=== PATIENT | female | born 1965 | race Caucasian/White ===

== ENCOUNTER 2016-06-10 15:58 | Observation (INO) | payer OTHER ==
[~2016-06-10] VITALS: Ht 162.6 cm; Wt 75.3 kg
[~2016-06-10 15:58] MED LIST: BACTRIM,SEPT1 TABLET PO
[2016-06-10 19:16] LABS: MCH 32.2 PG (29.0-34.0); MCHC 33.4 G/DL (30.0-36.0); MCV 96.2 FL (83-99); MEAN PLAT.VOLUME 10.3 uM^3 (9.5-12.4); PLATELET COUNT 277 K/uL (156-360); RBC DIS.WIDTH-CV 12.9 % (11.8-14.6); RBC DIS.WIDTH-SD 43.6 % (39-53); RED BLOOD COUNT 3.95 M/uL (3.80-5.20); WHITE BLOOD COUNT 8.7 K/uL (4.1-10.2)
[2016-06-10 19:26] LABS: CHLORIDE 103 mEq/L (99-109); POTASSIUM 4.5 mEq/L (3.7-5.4); SODIUM 138 mEq/L (136-147)
[2016-06-10] MEDS ORDERED: MS CONTIN,ORAMO15 M1 PO (19:27)
[2016-06-10] MEDS ORDERED: LORAZEPAM0.5 MG PO (19:27)
[2016-06-10] MEDS ORDERED: CITALOPRAM HBR40 MG PO (19:27)
[2016-06-10] MEDS ORDERED: MORPHINE SULFAT15 MG PO (19:27)
[2016-06-10] MEDS ORDERED: NORTRIPTYLINE H25 MG PO (19:27)
[2016-06-10] MEDS ORDERED: VITAMIN D-32000 UNI2 PO (19:28)
[2016-06-10] MEDS ORDERED: VITAMIN B-122500 MCG SL (19:28)
[2016-06-10] MEDS ORDERED: VENTOLIN HFA18 GM IH (19:28)
[2016-06-10] MEDS ORDERED: EPIPEN ADU0.3 MG/0.3 IM (19:28)
[2016-06-10 19:29] LABS: GLUCOSE 128 mg/dL (70-99)
[2016-06-10 19:30] LABS: ANION GAP 10 MEQ/L (2-14)
[2016-06-10 19:31] LABS: TOTAL BILIRUBIN 0.3 mg/dL (0.0-1.0)
[2016-06-10 19:32] LABS: ALKALINE PHOSPHATASE 91 IU/L (3-129)
[2016-06-10 19:33] LABS: GFR ESTIMATE (CALCULATED) > 59 mL/min/
[2016-06-10 19:34] LABS: DIRECT BILIRUBIN 0.1 mg/dL (0.0-0.3); UREA NITROGEN (BUN) 9 mg/dL (9-23)
[2016-06-10 19:36] LABS: LIPASE 21 U/L (1.0-51.0)
[2016-06-10 19:57] LABS: TROP-I INTERPRETATION NEGATIVE; TROPONIN-I < 0.01 ng/mL (0.0-0.30)
[2016-06-10 21:33] VITALS: BP 111/62
[2016-06-11 08:09] VITALS: BP 99/58
[2016-06-11 11:43] VITALS: BP 105/69
[2016-06-11 16:15] VITALS: BP 111/71
[2016-06-11 19:20] VITALS: BP 110/63
[2016-06-11 21:25] LABS: ADD MIUA? YES; BILIRUBIN NEGATIVE; BLOOD MODERATE; COLOR YELLOW ((YELLOW)); GLUCOSE (STRIP) NEGATIVE; KETONES NEGATIVE; LEUKOCYTES NEGATIVE; NITRITE NEGATIVE; PH, URINE 6.5 (5-8); PROTEIN (STRIP) NEGATIVE; SPECIFIC GRAVITY 1.022 (1.000-1.030); UROBILINOGEN 0.2 MG/DL (0.2-1.0)
[2016-06-11 21:27] LABS: BACTERIA 1+; CASTS NONE SEEN /LPF; CRYSTALS NONE SEEN; EPITHELIAL CELLS RARE; MUCUS NONE SEEN; PATHOLOGICAL CAST NONE SEEN; RED BLOOD CELLS 0-5 /HPF (0-5); SMALL ROUND CELL NONE SEEN; UCUL ADDED? NO; WHITE BLOOD CELLS 0-5 /HPF (0-5); YEAST-LIKE CELL NONE SEEN
[2016-06-12 00:10] VITALS: BP 116/56
[2016-06-12 04:33] VITALS: BP 97/60
[2016-06-12 08:00] VITALS: BP 127/83
[2016-06-12 12:00] VITALS: BP 118/76
[2016-06-12 16:00] VITALS: BP 106/66
[2016-06-12] MEDS ORDERED: NICOTINE PATCH1 EAC1 TD (16:19)
[2016-06-12] MEDS ORDERED: POLYETHYLENE GL17 GM PO (16:27)
[2016-06-12 21:33] VITALS: BP 106/68
[2016-06-13] VITALS: BP 130/70
[2016-06-13 04:20] VITALS: BP 104/60
[2016-06-13 08:52] VITALS: BP 110/74
[2016-06-13] MEDS ORDERED: MS CONTIN,ORAMO15 M1 PO (10:36)
[2016-06-13 12:44] VITALS: BP 96/64
[2016-06-23] MEDS ORDERED: CYCLOPHOSPHAMID50 M2 PO (09:02)
== END 2016-06-13 15:39 | disposition home or self-care (01) ==
LOC: EME 15:58 → EDOF 20:21 → 5WEST 21:14
PROVIDERS: Emergency Medicine; Hospitalist
DX: G89.3 Neoplasm related pain (acute) (chronic) (principal); C88.0 Waldenstrom macroglobulinemia; K59.03 Drug induced constipation; T40.2X5A Adverse effect of other opioids, initial encounter; R68.2 Dry mouth, unspecified; F17.200 Nicotine dependence, unspecified, uncomplicated; M79.7 Fibromyalgia; Z79.891 Long term (current) use of opiate analgesic; M19.90 Unspecified osteoarthritis, unspecified site; Z88.8 Allergy status to other drugs, medicaments and biological substances; Z80.1 Family history of malignant neoplasm of trachea, bronchus and lung
CPT/HCPCS: 72132; 72158; 80048; 80076; 81003; 83690; 84484; 85027; 85810 90; 94799; 99202; 99281; 99284; G0378; J1644; J2060; J2270; J2405; J7030

== ENCOUNTER 2016-06-27 12:14 | Observation (INO) | payer OTHER ==
[~2016-06-27] VITALS: Ht 165.1 cm; Wt 76.1 kg
[~2016-06-27 12:14] MED LIST changes: +CITALOPRAM HBR40 MG PO; +CYCLOPHOSPHAMID50 M2 PO; +EPIPEN ADU0.3 MG/0.3 IM; +LORAZEPAM0.5 MG PO; +MORPHINE SULFAT15 MG PO; +MS CONTIN,ORAMO15 M1 PO; +NICOTINE PATCH1 EAC1 TD; +NORTRIPTYLINE H25 MG PO; +POLYETHYLENE GL17 GM PO; +VENTOLIN HFA18 GM IH; +VITAMIN B-122500 MCG SL; +VITAMIN D-32000 UNI2 PO
[2016-06-27 13:08] LABS: HEMATOCRIT 39.3 % (36.0-46.0); MCH 31.5 PG (29.0-34.0); MCHC 33.8 G/DL (30.0-36.0); MCV 93.1 FL (83-99); PLATELET COUNT 280 K/uL (156-360); RBC DIS.WIDTH-CV 12.9 % (11.8-14.6); RBC DIS.WIDTH-SD 42.4 % (39-53); RED BLOOD COUNT 4.22 M/uL (3.80-5.20); WHITE BLOOD COUNT 8.5 K/uL (4.1-10.2)
[2016-06-27 13:17] LABS: CHLORIDE 102 mEq/L (99-109); POTASSIUM 3.8 mEq/L (3.7-5.4); SODIUM 136 mEq/L (136-147)
[2016-06-27 13:19] LABS: GLUCOSE 94 mg/dL (70-99)
[2016-06-27 13:20] LABS: ANION GAP 13 MEQ/L (2-14)
[2016-06-27 13:23] LABS: GFR ESTIMATE (CALCULATED) > 59 mL/min/
[2016-06-27 13:24] LABS: UREA NITROGEN (BUN) 14 mg/dL (9-23)
[2016-06-27 13:29] LABS: TROP-I INTERPRETATION NEGATIVE; TROPONIN-I < 0.01 ng/mL (0.0-0.30)
[2016-06-27] MEDS ORDERED: CYCLOPHOSPHAMID PO (15:27)
[2016-06-27] MEDS ORDERED: NICODERM CQ1 EAC1 TD (15:30)
[2016-06-27] MEDS ORDERED: SENOKOT S,PE1 TABLET PO (15:32)
[2016-06-27 17:23] VITALS: BP 104/67
[2016-06-27 20:13] VITALS: BP 116/75
[2016-06-28 00:01] VITALS: BP 128/72
[2016-06-28 08:00] VITALS: BP 127/64
[2016-06-28 12:00] VITALS: BP 122/74
[2016-06-28 16:00] VITALS: BP 137/87
[2016-06-28 20:29] VITALS: BP 120/60
[2016-06-29 00:38] VITALS: BP 95/52
[2016-06-29 01:00] VITALS: BP 110/69
[2016-06-29 04:25] VITALS: BP 113/63
[2016-06-29 08:16] VITALS: BP 80/54
[2016-06-29 09:35] VITALS: BP 101/65
[2016-06-29 12:14] VITALS: BP 110/64
== END 2016-06-29 15:37 | disposition home or self-care (01) ==
LOC: EME 12:14 → 5WEST 15:25 → EDOF 15:25 → 5WEST 16:55
PROVIDERS: Emergency Medicine
DX: C88.0 Waldenstrom macroglobulinemia (principal); C85.90 Non-Hodgkin lymphoma, unspecified, unspecified site; G89.3 Neoplasm related pain (acute) (chronic); M54.5 Low back pain; M25.551 Pain in right hip; M25.552 Pain in left hip; G62.9 Polyneuropathy, unspecified; Z79.891 Long term (current) use of opiate analgesic; Z92.21 Personal history of antineoplastic chemotherapy; Z80.7 Family history of other malignant neoplasms of lymphoid, hematopoietic and related tissues; Z80.1 Family history of malignant neoplasm of trachea, bronchus and lung; F17.200 Nicotine dependence, unspecified, uncomplicated; Z88.8 Allergy status to other drugs, medicaments and biological substances; Z88.5 Allergy status to narcotic agent
CPT/HCPCS: 71020; 80048; 84484; 85027; 94640; 94640 76; 94799; 99202; 99281; 99285; G0378; G8978 GP CH; G8979 GP CH; G8980 GP CH; J1170; J1200; J1650; J1940; J2405; J7030

== ENCOUNTER → 2016-07-04 | Outpatient (CLI) | payer OTHER ==
[~2016-07-04] MED LIST changes: +CYCLOPHOSPHAMID PO; +NICODERM CQ1 EAC1 TD; +SENOKOT S,PE1 TABLET PO
== END | disposition home or self-care (01) ==
LOC: RAD 13:45
DX: J43.9 Emphysema, unspecified (principal); J98.11 Atelectasis; K76.9 Liver disease, unspecified
CPT/HCPCS: 71275

== ENCOUNTER → 2016-07-13 | Outpatient (CLI) | payer OTHER | END | disposition home or self-care (01) | LOC: RES 13:20 | DX: J98.8 Other specified respiratory disorders (principal); R06.02 Shortness of breath | CPT/HCPCS: 94060; 94726; 94729 ==

== ENCOUNTER 2016-07-28 16:32 | Inpatient (IN) | payer OTHER ==
[~2016-07-28] VITALS: Ht 165.1 cm; Wt 74.8 kg
[2016-07-28 18:22] LABS: HEMATOCRIT 36.5 % (36.0-46.0); MCH 31.7 PG (29.0-34.0); MCHC 33.4 G/DL (30.0-36.0); MCV 94.8 FL (83-99); MEAN PLAT.VOLUME 9.7 uM^3 (9.5-12.4); PLATELET COUNT 292 K/uL (156-360); RBC DIS.WIDTH-CV 12.5 % (11.8-14.6); RBC DIS.WIDTH-SD 42.3 % (39-53); RED BLOOD COUNT 3.85 M/uL (3.80-5.20); WHITE BLOOD COUNT 4.8 K/uL (4.1-10.2)
[2016-07-28 18:30] LABS: CHLORIDE 100 mEq/L (99-109); POTASSIUM 4.2 mEq/L (3.7-5.4); SODIUM 137 mEq/L (136-147)
[2016-07-28 18:32] LABS: GLUCOSE 109 mg/dL (70-99)
[2016-07-28 18:33] LABS: ANION GAP 10 MEQ/L (2-14)
[2016-07-28] MEDS ORDERED: MS CONTIN100 MG PO (18:34)
[2016-07-28] MEDS ORDERED: FLONASE16 G1 BOTH NARES (18:34)
[2016-07-28] MEDS ORDERED: MORPHINE SULFAT30 M1 PO (18:34)
[2016-07-28 18:36] LABS: GFR ESTIMATE (CALCULATED) > 59 mL/min/
[2016-07-28 18:37] LABS: UREA NITROGEN (BUN) 8 mg/dL (9-23)
[2016-07-28 18:44] LABS: TROP-I INTERPRETATION NEGATIVE; TROPONIN-I < 0.01 ng/mL (0.0-0.30)
[2016-07-28] MEDS ORDERED: COMPAZINE5 MG PO (20:20)
[2016-07-28] MEDS ORDERED: ONDANSETRON HCL4 MG PO (20:20)
[2016-07-28 22:33] VITALS: BP 128/71; BP 128/74
[2016-07-29 09:34] VITALS: BP 152/70
[2016-07-29 11:50] VITALS: BP 141/92
[2016-07-29 15:48] VITALS: BP 128/78
[2016-07-29 19:47] VITALS: BP 137/77
[2016-07-29 22:59] VITALS: BP 103/64
[2016-07-30 03:50] VITALS: BP 131/68
[2016-07-30 06:38] LABS: ANION GAP 10 MEQ/L (2-14); CHLORIDE 102 MEQ/L (99-109); GFR ESTIMATE (CALCULATED) > 59 mL/min/; GLUCOSE 159 mg/dL (70-99); POTASSIUM 4.2 MEQ/L (3.7-5.4); SAMPLE HEMOLYSIS CHECK 0; SAMPLE ICTERIC CHECK 0; SAMPLE LIPEMIA CHECK 0; SODIUM 139 MEQ/L (136-147); UREA NITROGEN (BUN) 11 mg/dL (9-23)
[2016-07-30 06:41] LABS: EOSINOPHIL (%) 0 % (0-5); HEMATOCRIT 35.3 % (36.0-46.0); IMMATURE GRANULOCYTE (%) 0.4 % (0.0-0.7); LYMPHOCYTE COUNT 0.7 K/uL (1.0-2.8); MCH 30.5 PG (29.0-34.0); MCV 95.1 FL (83-99); MEAN PLAT.VOLUME 10.6 uM^3 (9.5-12.4); MONOCYTE (%) 3.1 % (3-12); MONOCYTE COUNT 0.3 K/uL (0-0.8); NEUTROPHIL COUNT 9.2 K/uL (1.8-6.4); PLATELET COUNT 296 K/uL (156-360); RBC DIS.WIDTH-CV 13.3 % (11.8-14.6); RBC DIS.WIDTH-SD 45.7 % (39-53); RED BLOOD COUNT 3.71 M/uL (3.80-5.20)
[2016-07-30 07:18] LABS: WHITE BLOOD COUNT 10.2 K/uL (4.1-10.2)
[2016-07-30 09:15] VITALS: BP 110/69
[2016-07-30 12:29] VITALS: BP 116/75
[2016-07-30] MEDS ORDERED: AZITHROMYCIN500 M1 PO (15:39)
[2016-07-30] MEDS ORDERED: VENTOLIN HFA18 GM IH (15:39)
[2016-07-30] MEDS ORDERED: PREDNISONE20 MG PO (15:40)
[2016-07-30 17:05] VITALS: BP 130/77
== END 2016-07-30 17:17 | disposition home or self-care (01) | DRG 190 ==
LOC: EME 16:32 → EDOF 21:17 → 4EAST 21:17
PROVIDERS: Emergency Medicine; Internal Medicine
DX: J44.1 Chronic obstructive pulmonary disease with (acute) exacerbation (principal); J18.9 Pneumonia, unspecified organism; T45.1X5A Adverse effect of antineoplastic and immunosuppressive drugs, initial encounter; C85.90 Non-Hodgkin lymphoma, unspecified, unspecified site; J44.0 Chronic obstructive pulmonary disease with (acute) lower respiratory infection; J20.9 Acute bronchitis, unspecified; C88.0 Waldenstrom macroglobulinemia; G62.9 Polyneuropathy, unspecified; M19.90 Unspecified osteoarthritis, unspecified site; M79.7 Fibromyalgia; R06.1 Stridor; F17.210 Nicotine dependence, cigarettes, uncomplicated; E66.9 Obesity, unspecified; G89.3 Neoplasm related pain (acute) (chronic); F41.9 Anxiety disorder, unspecified
CPT/HCPCS: 36415; 70360; 71010; 71275; 80048; 80053; 84484; 85025; 85027; 94010; 94640; 94640 76; 94799; 99202; 99281; 99285; J1100; J1644; J2405; J2930; J7512

== ENCOUNTER 2016-08-10 15:02 | Emergency (ER) | payer OTHER ==
[~2016-08-10] VITALS: Ht 165.1 cm; Wt 74.0 kg
[~2016-08-10 15:02] MED LIST changes: +AZITHROMYCIN500 M1 PO; +COMPAZINE5 MG PO; +FLONASE16 G1 BOTH NARES; +MORPHINE SULFAT30 M1 PO; +MS CONTIN100 MG PO; +ONDANSETRON HCL4 MG PO; +PREDNISONE20 MG PO
[2016-08-10 15:55] LABS: HEMATOCRIT 35.6 % (36.0-46.0); MCH 31.4 PG (29.0-34.0); MCHC 33.7 G/DL (30.0-36.0); MCV 93.2 FL (83-99); MEAN PLAT.VOLUME 9.5 uM^3 (9.5-12.4); PLATELET COUNT 313 K/uL (156-360); RBC DIS.WIDTH-CV 13.1 % (11.8-14.6); RBC DIS.WIDTH-SD 42.8 % (39-53); RED BLOOD COUNT 3.82 M/uL (3.80-5.20)
[2016-08-10 15:56] LABS: EOSINOPHIL (%) 0.2 % (0-5); IMMATURE GRANULOCYTE (%) 0.7 % (0.0-0.7); IMMATURE GRANULOCYTE COUNT 0.7 K/uL; LYMPHOCYTE COUNT 1.5 K/uL (1.0-2.8); MONOCYTE (%) 16.1 % (3-12); MONOCYTE COUNT 1.7 K/uL (0-0.8); NEUTROPHIL (%) 68.6 % (45-76); NEUTROPHIL COUNT 7.3 K/uL (1.8-6.4); WHITE BLOOD COUNT 10.7 K/uL (4.1-10.2)
[2016-08-10 16:03] LABS: CHLORIDE 105 mEq/L (99-109); POTASSIUM 3.8 mEq/L (3.7-5.4); SODIUM 140 mEq/L (136-147)
[2016-08-10 16:05] LABS: GLUCOSE 98 mg/dL (70-99)
[2016-08-10 16:06] LABS: ANION GAP 10 MEQ/L (2-14); D-DIMER ELISA 0.65 mg/L FEU (< 0.57)
[2016-08-10 16:09] LABS: GFR ESTIMATE (CALCULATED) > 59 mL/min/; UREA NITROGEN (BUN) 6 mg/dL (9-23)
[2016-08-10 16:16] LABS: TROP-I INTERPRETATION NEGATIVE; TROPONIN-I < 0.01 ng/mL (0.0-0.30)
[2016-08-10] MEDS ORDERED: BENADRYL50 MG PO (18:48)
[2016-08-10 19:08] VITALS: BP 105/82
== END 2016-08-10 19:09 | disposition home or self-care (01) ==
LOC: EME 15:02 → EXP 15:02
PROVIDERS: Physician Assistant
DX: R06.00 Dyspnea, unspecified (principal); R42 Dizziness and giddiness; T50.905A Adverse effect of unspecified drugs, medicaments and biological substances, initial encounter; R79.1 Abnormal coagulation profile; C96.9 Malignant neoplasm of lymphoid, hematopoietic and related tissue, unspecified; G89.29 Other chronic pain; Z79.891 Long term (current) use of opiate analgesic; F17.200 Nicotine dependence, unspecified, uncomplicated
CPT/HCPCS: 71020; 71275; 80048; 84484; 85025; 85379; 93005; 99281; 99285; J1200; J2060; J2930; S0028

== ENCOUNTER 2016-11-15 18:50 | Emergency (ER) | payer OTHER ==
[~2016-11-15] VITALS: Ht 165.1 cm; Wt 77.7 kg
[~2016-11-15 18:50] MED LIST changes: +BENADRYL50 MG PO; +HYDROMORPHONE HC2 MG PO
[2016-11-15 19:08] VITALS: BP 114/80
[2016-11-15 19:56] LABS: HEMATOCRIT 49.5 % (36.0-46.0); MCH 30.8 PG (29.0-34.0); MCHC 33.3 G/DL (30.0-36.0); MCV 92.5 FL (83-99); MEAN PLAT.VOLUME 9.2 uM^3 (9.5-12.4); RBC DIS.WIDTH-CV 15.5 % (11.8-14.6); RBC DIS.WIDTH-SD 52.8 % (39-53); WHITE BLOOD COUNT 6.1 K/uL (4.1-10.2)
[2016-11-15 20:07] LABS: CHLORIDE 97 mEq/L (99-109); POTASSIUM 3.9 mEq/L (3.7-5.4); SODIUM 137 mEq/L (136-147)
[2016-11-15 20:08] LABS: GLUCOSE 102 mg/dL (70-99)
[2016-11-15 20:10] LABS: ANION GAP 12 MEQ/L (2-14)
[2016-11-15 20:12] LABS: GFR ESTIMATE (CALCULATED) > 59 mL/min/
[2016-11-15 20:13] LABS: UREA NITROGEN (BUN) 18 mg/dL (9-23)
[2016-11-15 20:23] LABS: PLATELET COUNT 145 K/uL (156-360); RED BLOOD COUNT 5.35 M/uL (3.80-5.20)
[2016-11-16] MEDS ORDERED: MS CONTIN200 MG PO (14:57)
[2016-11-16] MEDS ORDERED: LORAZEPAM1 MG PO (14:58)
[2016-11-16] MEDS ORDERED: SYMBICORT60 INHALAT IH (15:00)
[2016-11-16] MEDS ORDERED: MONTELUKAST SOD10 MG PO (15:00)
[2016-11-16] MEDS ORDERED: SPIRIVA RESPIMAT4 GM IH (15:00)
[2016-11-16] MEDS ORDERED: RITALIN10 MG PO ×2 (15:02→15:04)
[2016-11-16] MEDS ORDERED: OMEPRAZOLE20 MG PO (15:02)
== END 2016-11-15 20:00 | disposition left against medical advice (07) ==
LOC: EME 18:50
DX: R11.10 Vomiting, unspecified (principal); R42 Dizziness and giddiness; R50.9 Fever, unspecified; Z53.21 Procedure and treatment not carried out due to patient leaving prior to being seen by health care provider
CPT/HCPCS: 80048; 81003; 85027

== ENCOUNTER 2016-11-16 10:48 | Observation (INO) | payer OTHER ==
[~2016-11-16] VITALS: Ht 165.1 cm; Wt 75.6 kg
[2016-11-16 12:02] LABS: HEMATOCRIT 47.5 % (36.0-46.0); MCH 31.3 PG (29.0-34.0); MCHC 34.3 G/DL (30.0-36.0); MCV 91.2 FL (83-99); MEAN PLAT.VOLUME 10.3 uM^3 (9.5-12.4); PLATELET COUNT 155 K/uL (156-360); RBC DIS.WIDTH-CV 15.3 % (11.8-14.6); RBC DIS.WIDTH-SD 50.6 % (39-53); RED BLOOD COUNT 5.21 M/uL (3.80-5.20); WHITE BLOOD COUNT 5.7 K/uL (4.1-10.2)
[2016-11-16 12:18] LABS: CHLORIDE 98 mEq/L (99-109); POTASSIUM 4.1 mEq/L (3.7-5.4); SODIUM 135 mEq/L (136-147)
[2016-11-16 12:21] LABS: ANION GAP 14 MEQ/L (2-14)
[2016-11-16 12:23] LABS: GFR ESTIMATE (CALCULATED) > 59 mL/min/
[2016-11-16 12:24] LABS: UREA NITROGEN (BUN) 20 mg/dL (9-23)
[2016-11-16 12:26] LABS: GLUCOSE 165 mg/dL (70-99)
[2016-11-16 13:19] LABS: TOTAL BILIRUBIN 1.2 mg/dL (0.0-1.0)
[2016-11-16 13:20] LABS: ALKALINE PHOSPHATASE 70 IU/L (3-129)
[2016-11-16 13:22] LABS: DIRECT BILIRUBIN 0.4 mg/dL (0.0-0.3)
[2016-11-16 14:18] LABS: ABS NEUTROPHIL COUNT 5.2; ATYPICAL LYMPHOCYTE 1.7 %; EOSINOPHIL ABS CT 0; INSTRUMENT ABS NEUTROPHIL CT 4.4 K/uL; LYMPHOCYTES 2.6 % (15.0-45.0); METAMYELOCYTES 1.7 %; PLAT.SUFFICIENCY ADEQUATE; SEG.NEUTROPHILS 83.5 % (46.0-76.0)
[2016-11-16] MEDS ORDERED: MS CONTIN200 MG PO (14:57)
[2016-11-16] MEDS ORDERED: LORAZEPAM1 MG PO (14:58)
[2016-11-16] MEDS ORDERED: SYMBICORT60 INHALAT IH (15:00)
[2016-11-16] MEDS ORDERED: MONTELUKAST SOD10 MG PO (15:00)
[2016-11-16] MEDS ORDERED: SPIRIVA RESPIMAT4 GM IH (15:00)
[2016-11-16] MEDS ORDERED: OMEPRAZOLE20 MG PO (15:02)
[2016-11-16] MEDS ORDERED: RITALIN10 MG PO ×2 (15:02→15:04)
[2016-11-16 15:42] LABS: LIPASE 20 U/L (1.0-51.0)
[2016-11-16 18:02] VITALS: BP 116/65
[2016-11-16 22:41] VITALS: BP 115/76
[2016-11-17 02:46] VITALS: BP 133/83
[2016-11-17 03:01] LABS: ADD MIUA? YES; BILIRUBIN NEGATIVE; BLOOD MODERATE; COLOR STRAW ((YELLOW)); GLUCOSE (STRIP) 50; KETONES NEGATIVE; LEUKOCYTES NEGATIVE; NITRITE NEGATIVE; PROTEIN (STRIP) NEGATIVE; SPECIFIC GRAVITY 1.018 (1.000-1.030); UROBILINOGEN 0.2 MG/DL (0.2-1.0)
[2016-11-17 03:08] LABS: BACTERIA NONE SEEN /HPF; EPITHELIAL CELLS NONE SEEN /HPF; MUCUS NONE SEEN /LPF; UCUL ADDED? NO; WHITE BLOOD CELLS 0-5 /HPF (0-5)
[2016-11-17 06:43] LABS: HEMATOCRIT 40.1 % (36.0-46.0); MCH 31.9 PG (29.0-34.0); MCHC 33.2 G/DL (30.0-36.0); PLATELET COUNT 147 K/uL (156-360); RBC DIS.WIDTH-CV 15.2 % (11.8-14.6); RBC DIS.WIDTH-SD 54.1 % (39-53); RED BLOOD COUNT 4.17 M/uL (3.80-5.20); WHITE BLOOD COUNT 4.4 K/uL (4.1-10.2)
[2016-11-17 06:48] LABS: MCV 96.2 FL (83-99)
[2016-11-17 07:02] VITALS: BP 121/78
[2016-11-17 07:04] LABS: ALKALINE PHOSPHATASE 55 IU/L (3-129); ANION GAP 10 MEQ/L (2-14); CHLORIDE 105 MEQ/L (99-109); GFR ESTIMATE (CALCULATED) > 59 mL/min/; GLUCOSE 127 mg/dL (70-99); POTASSIUM 4.5 MEQ/L (3.7-5.4); SAMPLE HEMOLYSIS CHECK 0; SAMPLE ICTERIC CHECK 0; SAMPLE LIPEMIA CHECK 0; TOTAL BILIRUBIN 0.6 MG/DL (0.0-1.0); UREA NITROGEN (BUN) 11 mg/dL (9-23)
[2016-11-17 07:09] LABS: SODIUM 142 MEQ/L (136-147)
[2016-11-17] MEDS ORDERED: OMEPRAZOLE20 MG PO (13:25)
== END 2016-11-17 15:06 | disposition home or self-care (01) ==
LOC: EME 10:48 → 5EAST 14:45 → EDOF 14:45 → 5EAST 14:45
PROVIDERS: Internal Medicine
DX: A08.4 Viral intestinal infection, unspecified (principal); M79.7 Fibromyalgia; J44.9 Chronic obstructive pulmonary disease, unspecified; Z88.0 Allergy status to penicillin; Z87.891 Personal history of nicotine dependence; G62.9 Polyneuropathy, unspecified; F41.9 Anxiety disorder, unspecified; E86.0 Dehydration; C88.0 Waldenstrom macroglobulinemia; M19.90 Unspecified osteoarthritis, unspecified site; G89.29 Other chronic pain
CPT/HCPCS: 71010; 74177; 80048; 80053; 80076; 81003; 83605; 83690; 85025; 85027; 94640; 94640 76; 99202; 99281; 99285; C9113; G0378; J1170; J1644; J2765; J7030; J7042; J7050

== ENCOUNTER → 2017-03-01 | Outpatient (CLI) | payer OTHER ==
[~2017-03-01] MED LIST changes: +LORAZEPAM1 MG PO; +MONTELUKAST SOD10 MG PO; +MS CONTIN200 MG PO; +OMEPRAZOLE20 MG PO; +RITALIN10 MG PO; +SPIRIVA RESPIMAT4 GM IH; +SYMBICORT60 INHALAT IH
[2017-03-01 15:27] LABS: APPEARANCE CLEAR/COLORLESS
[2017-03-01 15:36] LABS: RED CELL AREA COUNTED 18; RED CELL COUNT 0 /MM^3 (0-1); RED CELL DILUTION 1; WBC AREA COUNTED 18; WBC DILUTION 1; WHITE CELL COUNT 3 /MM^3 (0-5); WHITE CELL RAW COUNT 5
[2017-03-01 16:09] LABS: CSF EOSINOPHILS 0 % (0-25); MONONUCLEAR WBC'S 100 % (50-90); POLYNUCLEAR WBC'S 0 % (0-3)
== END | disposition home or self-care (01) ==
LOC: RAD 13:40
PROVIDERS: Psychiatry & Neurology Clinical Neurophysiology
PROC: 009U3ZZ Drainage of Spinal Canal, Percutaneous Approach (ICD-10-PCS; principal; 2017-03-01)
DX: C94.6 Myelodysplastic disease, not elsewhere classified (principal)
CPT/HCPCS: 62270; 77003; 82945; 84157; 87070; 87205; 88108; 89051